=== PATIENT | female | born 1985 | race Caucasian/White ===

== ENCOUNTER 2019-06-08 08:02 | Emergency (ER) | payer OTHER, SELFPAY ==
[2019-06-08 08:40] VITALS: BP 120/72; PULSE 79; RESP 20; TEMP 36.7; O2SAT 99
--- NOTE | 2019-06-08 09:59 | ED.HA ---
HPI - Headache General Chief Complaint: Headache Stated Complaint: migraine Source: patient History of Present Illness HPI Narrative: This is a 34-year-old female who presents with some headache throbbing right-sided headache with ear ache with a pressure-like sensation over the right frontal forehead with no nasal discharge has some chronic migraines, this feels a little bit different than her regular migraine with dullness pressure-like sensation with no chest pain no shortness of breath no blurry vision no fever or chills no neck stiffness. MD elicited complaint: headache and migraine Onset (ago): hour(s) Onset description: gradually Location: left, frontal and facial Severity: moderate Pain scale (0-10): 7 Quality & Timing: throbbing, pulsatile and dull Context: occurred at rest Associated symptoms: none Treatments prior to arrival: acetaminophen Related Data Allergies Allergy/AdvReac Type Severity Reaction Status Date / Time morphine Allergy Unknown Verified 09/21/14 09:27 Review of Systems Review of Systems: All systems reviewed & are unremarkable except as noted in HPI and below PMFSH Past Medical History Medical History Anxiety Depression Migraines Family History Family History Father Hypertension Other Family history of heart disease in male family member before age 55 Social History Social History Smoking status: Never smoker Exam Const: General: no acute distress and alert Orientation/consciousness: patient oriented x3 HENMT: Head: normal to inspection Eyes: Pupils: Equal, round and reactive pupils present Other: Right frontal sinus pressure with palpation Neck: Neck: normal visual inspection Chest: Chest palpation & inspection: normal inspection of the chest Resp: Effort & Inspection: normal respiratory effort Cardio: Rate: regular rate Rhythm: regular rhythm GI: GI Palp: Yes Soft to palpation : General: Yes no CVA tenderness Course Course Emergency Course: patient had 60 mg Toradol IM and her headache has improved Critical Care Time Critical Care Time Critical Care Time: No Discharge Plan Discharge Clinical Impression: Migraines Qualifiers: Migraine type: without aura Status migrainosus presence: without status migrainosus Intractability: not intractable Qualified Code(s): G43.009 - Migraine without aura, not intractable, without status migrainosus Headache Qualifiers: Headache type: unspecified Headache chronicity pattern: acute headache Intractability: not intractable Qualified Code(s): R51 - Headache Sinusitis Qualifiers: Sinusitis location: frontal Chronicity: acute Recurrence: non-recurrent Qualified Code(s): J01.10 - Acute frontal sinusitis, unspecified Patient Disposition: Home, Self-Care Condition: Stable Instructions: Antibiotic Form, Sinusitis (ED), Acute Headache (ED) Additional Instructions: clear 10 [id number] daily x1 week, take medicines as prescribed and follow-up with primary care physician if symptoms persist or worsen. Prescriptions: New azithromycin [Zithromax Z-Greg] 250 mg tablet 250 mg PO DAILY 5 Days Qty: 5 RF: 0 tramadol [Ultram] 50 mg tablet 50 mg PO Q6H PRN (Reason: pain) Qty: 20 RF: 0 fluticasone propionate [Flonase Allergy Relief] 50 mcg/actuation spray,suspension 1 spray NASAL BID Qty: 15.8 RF: 0 Follow-up/Referrals: Adria Clark MD [Primary Care Provider] - Time of Disposition: 10:14
[2019-06-08 10:26] VITALS: BP 109/62; PULSE 60; RESP 18; TEMP 36.2; O2SAT 100
== END 2019-06-08 10:35 | disposition home or self-care (01) ==
PROVIDERS: Emergency Provider Emergency Medicine; PCP Internal Medicine
DX: G43.009 Migraine without aura, not intractable, without status migrainosus (principal); J01.10 Acute frontal sinusitis, unspecified
CPT/HCPCS: 99283

== ENCOUNTER 2020-04-13 11:31 | Outpatient (CLI) | payer OTHER, SELFPAY ==
--- NOTE | ~2020-04-13 | XR_ITS ---
EXAMINATION: XR chest 2V DATE: 04/13/2020 11:53 INDICATION: Left pleuritic chest pain, COVID 19 positive TECHNIQUE: PA and lateral views of the chest are obtained. COMPARISON: 01/30/2012 FINDINGS: The lungs are free of acute opacities. There is no pleural effusion or pneumothorax. The ca rdiomediastinal silhouette is normal. The visualized bones and soft tissues are unremarkable. IMPRESSION: 1. No acute cardiopulmonary abnormality. Reviewed, dictated and finalized at location A. GER PUBLIC
--- NOTE | ~2020-04-13 | CT_ITS ---
EXAMINATION: CTA chest PE protocol DATE: 04/13/2020 16:59 INDICATION: COVID positive. Shortness of breath. Elevated d-dimer. Diffuse left-sided chest pain. TECHNIQUE: Computed tomography (CT) pulmonary angiogram of the chest was performed with 100 mL Omnipa que-350 intravenous contrast. Additional 3D reconstructions utilizing coronal maximum intensity proje ction (MIP) were performed. Automated exposure control and iterative reconstruction technique were em ployed. The dose-length product was 424.67 mGy-cm. COMPARISON: None FINDINGS: Good contrast opacification of the pulmonary arteries. There is mild streak artifact from dense contr ast in the superior vena cava and right atrium. Mild scattered respiratory motion artifact which does not significantly limit evaluation. There are pulmonary arterial filling defects consistent with emb karmen within a couple branches of the posterior basilar segmental pulmonary artery of the right lower l obe. No other definitive pulmonary emboli. Mild dependent atelectasis in the bilateral lower lobes. N o evident pneumonia, pulmonary edema, pleural effusion or pneumothorax. Heart size is normal. No evid ent right heart strain. No pericardial effusion. Thoracic aorta is normal in caliber with no dissecti on. Multinodular goiter with multiple likely benign small hypodense nodules the largest measuring 7 m m. No pathologically enlarged thoracic lymphadenopathy. Calcifications along the right adrenal gland consistent with prior insult such as infection or hemorrhage. Couple bladder is not visualized and li reuben surgically absent. Minimal thoracic spondylosis. IMPRESSION: 1. Pulmonary emboli with low clot burden within a couple subsegmental pulmonary arterial branches at the posterior basilar segment of the right lower lobe. Reviewed, dictated and finalized at location A. AL TECHNICIAN
[2020-04-13 12:02] LABS: Basophils Absolute Auto 0.01 K/mm3 (0.00-0.10); Basophils Percent Auto 0.2 % (0.0-1.0); Eosinophils Absolute Auto 0.05 K/mm3 (0.02-0.50); Eosinophils Percent Auto 0.8 % (1.0-6.0); Hematocrit 43.6 % (35.0-49.0); Hemoglobin 14.3 g/dL (12.0-15.0); Immature Granulocyte Absolute 0.02 K/mm3 (0.00-0.00); Immature Granulocyte Percent A 0.3 % (0.0-0.0); Lymphocytes Absolute Auto 1.88 K/mm3 (1.10-4.50); Lymphocytes Percent Auto 31.3 % (18.0-42.0); Mean Corpuscular HGB Conc 32.8 g/dL (32.0-36.0); Mean Corpuscular Hemoglobin 28.8 pg (27.0-31.0); Mean Corpuscular Volume 87.7 fL (78.0-102.0); Mean Platelet Volume 10.1 fl (9.2-11.8); Monocytes Absolute Auto 0.36 K/mm3 (0.10-0.90); Neutrophils Absolute Auto 3.7 K/mm3 (1.7-7.2); Neutrophils Percent Auto 61.4 % (50.0-70.0); Platelet Count Result 260 K/mm3 (150-420); Red Blood Count 4.97 M/mm3 (4.20-5.40); Red Cell Distribution Width 11.9 % (11.6-14.4)
[2020-04-13 12:23] LABS: Alanine Aminotransferase 15 U/L (14-59); Albumin Level 4.3 g/dL (3.4-5.0); Alkaline Phosphatase 51 U/L (46-116); Anion Gap 8 mmol/L (8-16); Aspartate Amino Transferase < 10 U/L (15-37); Bilirubin,Total 0.7 mg/dL (0.00-1.00); Blood Urea Nitrogen 9 mg/dL (7-18); CRP < 0.5 mg/dL (0.0-0.9); Calcium 9.2 mg/dL (8.5-10.1); Carbon Dioxide 28 mmol/L (21-32); Chloride 103 mmol/L (98-108); Estimated Glomerular Filt Rate > 60; Glucose 94 mg/dL (70-99); Osmolality Calculated 286 mOsm/kg (285-295); Potassium 4.1 mmol/L (3.5-5.1); Sodium 139 mmol/L (136-145); Total Protein 7.9 g/dL (6.4-8.2)
== END 2020-04-13 11:32 | disposition home or self-care (01) ==
PROVIDERS: PCP Internal Medicine; Visit Provider Internal Medicine
DX: U07.1 COVID-19 (principal); R07.81 Pleurodynia
CPT/HCPCS: 36415; 71046; 71275; 80053; 85025; 85380; 86140; Q9965; Q9967

== ENCOUNTER 2020-04-14 11:03 | Emergency (ER) | payer OTHER, SELFPAY ==
--- NOTE | 2020-04-14 11:13 | ED.SOB ---
HPI - SOB/Dyspnea General Chief Complaint: Recheck/Abnormal Lab/Rx Stated Complaint: Covid + /Unable to breath/3 blood clots in lung Time Seen by Provider: 04/14/20 11:29 Source: patient Mode of arrival: ambulatory Limitations: no limitations History of Present Illness HPI Narrative: 34-year-old woman comes in today complaining of pleuritic chest pain on the left and some shortness of breath last few days. Her physician did an outpatient workup finding a CTA angiogram positive for PEs, Mostly on the right. She has had no fever, vomiting, hemoptysis, syncope. She was diagnosed with COVID pneumonia several days ago. MD elicited complaint: shortness of breath and pain with inspiration Onset (ago): day(s) (3) Context: recent illness Timing: intermittent Severity: moderate Exacerbating factors: movement, coughing and inspiration Relieving factors: rest Known history of: asthma Associated symptoms: pain with inspiration and cough Treatment prior to arrival: none Related Data Home oxygen amount: none Home Medications Medication Instructions Recorded Confirmed albuterol sulfate 2 puff INHALATION Q4-8H PRN 04/14/20 04/14/20 cholecalciferol (vitamin D3) 25 mcg PO DAILY 04/14/20 04/14/20 duloxetine 40 mg PO DAILY 04/14/20 04/14/20 lorazepam 0.5 mg PO HS PRN 04/14/20 04/14/20 sertraline 37.5 mg PO DAILY 04/14/20 04/14/20 Allergies Allergy/AdvReac Type Severity Reaction Status Date / Time morphine Allergy Unknown Verified 09/21/14 09:27 Review of Systems Constitutional: Constitutional: Denies chills and Denies fever(s) Eyes: Eyes: Denies change in vision and Denies photophobia ENT: Denies dysphagia, Denies nasal congestion and Denies sore throat Cardiovascular: Cardiovascular: Reports chest pain and Denies radiating jaw, neck or arm pain Respiratory: Respiratory: Reports cough, Reports dyspnea and Denies wheezing Gastrointestinal: Gastrointestinal: Denies abdominal pain, Denies diarrhea, Denies nausea and Denies vomiting Genitourinary: Genitourinary: Denies nocturia and Denies dysuria Musculoskeletal: Musculoskeletal: Denies arthralgias and Denies joint swelling Integumentary/Breasts: Skin/Breast: Denies pruritus, Denies erythema and Denies rash Neurologic: Denies vertigo, Denies dizziness and Denies syncope Hematologic/Lymphatic: Hematologic/Lymphatic: Denies easy bleeding and Denies easy bruising Allergic/Immunologic: Allergic/Immunologic: Denies lip swelling and Denies throat swelling [facility] Past Medical History Medical History (Updated 04/14/20 @ 13:12 by Marc Su MD) Anxiety Depression Migraines Surgical History Surgical History History of S/P tubal ligation Family History Family History Father Hypertension Other Family history of heart disease in male family member before age 55 Social History Social History Smoking status: Never smoker Exam Const: General: healthy appearing, no acute distress and alert Orientation/consciousness: patient oriented x3 Limitations: no limitations HENMT: Head: normal to inspection Ears: external ears normal, TM's normal bilaterally and EAC's normal General nose exam: Normal nares present Face and sinus: normal facial exam Mouth: Yes moist mucous membranes Throat: posterior oropharynx normal Eyes: Conjunctivae: conjunctivae normal Pupils: Equal, round and reactive pupils present EOM: EOMs intact bilaterally Chest: Chest palpation & inspection: tenderness ( mild tenderness palpation on the left anterior costal margin) Resp: Effort & Inspection: normal respiratory effort and not labored Auscultation: clear to auscultation bilaterally, no rales, no rhonchi and no wheezes Cardio: Rate: regular rate Rhythm: regular rhythm Heart sounds: no murmurs GI: GI
[2020-04-14 11:15] VITALS: BP 110/81; PULSE 89; RESP 20; TEMP 36.6; O2SAT 100
[2020-04-14 12:21] LABS: Partial Thromboplastin Time 25.9 SEC (22.3-31.6); Prothrombin Time 10.7 Seconds (9.64-11.0)
[2020-04-14 12:54] LABS: Add Urine Microscopic? NO; Appearance Urine Clear (Clear); Bilirubin Urine Negative (Negative); Blood Urine Negative (Negative); Color Urine Yellow (Yellow); Glucose Urine UA Negative (Negative); Ketones Urine Negative (Negative); Leukocyte Esterase Ur Negative (Negative); Nitrate Urine Negative (Negative); Protein Urine Negative (Negative); Specific Grav Ur >= 1.030 (1.010-1.020); pH Urine 6.5 (5.0-8.0)
[2020-04-14 12:56] LABS: Pregnancy On Board Control Positive; Urine Pregnancy Test Negative
[2020-04-14 13:40] VITALS: BP 129/92; PULSE 79; RESP 14; O2SAT 100
--- NOTE | 2020-04-14 13:47 | PC.NURSE ---
PCP OFFICE MADE AWARE OF PATIENTS INABILITY TO PAY FOR PRESCRIBED MEDICATIONS AND PATIENTS DISINTEREST IN DUISCUSSING ALTERNATIVES.
[2020-04-16 21:12] LABS: Antithrombin III Activity 116 % normal (80-135)
[2020-04-17 22:00] LABS: Anti Cardio Antibody IgM <12 MPL (<=12); Anti Cardiolipin Antibody IgA <11 APL (<=11); Anti Cardiolipin Antibody IgG <14 GPL (<=14)
== END 2020-04-14 13:43 | disposition home or self-care (01) ==
PROVIDERS: Emergency Provider Emergency Medicine; PCP Internal Medicine
DX: I26.99 Other pulmonary embolism without acute cor pulmonale (principal)
CPT/HCPCS: 36415; 81003; 81025; 81240; 81241; 85300; 85303; 85306; 85610; 85730; 86147; 99283

== ENCOUNTER 2020-06-28 14:10 | Outpatient (CLI) | payer OTHER, SELFPAY ==
--- NOTE | ~2020-06-28 | XR_ITS ---
EXAMINATION: XR chest 2V 06/28/2020 14:41 INDICATION: Chest pain. History of blood clots. PROCEDURE: 2 view chest COMPARISON: 04/13/2020 FINDINGS: The lungs are clear. The cardiomediastinal silhouette is within normal limits. There are no pleural effusions. There is no pneumothorax suspected. IMPRESSION: 1: NO ACUTE CARDIOPULMONARY DISEASE. Reviewed, dictated and finalized at location B.
[2020-06-28 14:24] LABS: Basophils Absolute Auto 0.05 K/mm3 (0.00-0.10); Basophils Percent Auto 0.6 % (0.0-1.0); Eosinophils Absolute Auto 0.09 K/mm3 (0.02-0.50); Eosinophils Percent Auto 1.1 % (1.0-6.0); Hemoglobin 14.2 g/dL (12.0-15.0); Immature Granulocyte Absolute 0.02 K/mm3 (0.00-0.00); Immature Granulocyte Percent A 0.2 % (0.0-0.0); Lymphocytes Absolute Auto 1.87 K/mm3 (1.10-4.50); Lymphocytes Percent Auto 23.1 % (18.0-42.0); Mean Corpuscular Hemoglobin 28.9 pg (27.0-31.0); Mean Corpuscular Volume 87.4 fL (78.0-102.0); Mean Platelet Volume 9.9 fl (9.2-11.8); Monocytes Absolute Auto 0.42 K/mm3 (0.10-0.90); Monocytes Percent Auto 5.2 % (2.0-11.0); Neutrophils Absolute Auto 5.7 K/mm3 (1.7-7.2); Neutrophils Percent Auto 69.8 % (50.0-70.0); Platelet Count Result 231 K/mm3 (150-420); Red Blood Count 4.92 M/mm3 (4.20-5.40); White Blood Count 8.1 K/mm3 (4.8-10.8)
[2020-06-28 14:55] LABS: Alanine Aminotransferase 16 U/L (14-59); Albumin Level 4.1 g/dL (3.4-5.0); Alkaline Phosphatase 49 U/L (46-116); Anion Gap 7 mmol/L (8-16); Aspartate Amino Transferase 10 U/L (15-37); Bilirubin,Total 0.6 mg/dL (0.00-1.00); Blood Urea Nitrogen 10 mg/dL (7-18); CRP < 0.5 mg/dL (0.0-0.9); Calcium 8.8 mg/dL (8.5-10.1); Carbon Dioxide 29 mmol/L (21-32); Chloride 103 mmol/L (98-108); Creatine Kinase 43 U/L (26-192); Estimated Glomerular Filt Rate > 60; Glucose 89 mg/dL (70-99); Osmolality Calculated 286 mOsm/kg (285-295); Sodium 139 mmol/L (136-145); Total Protein 7.2 g/dL (6.4-8.2)
[2020-06-28 15:18] LABS: Creatine Kinase MB < 0.50 ng/mL (0.00-5.00)
== END 2020-06-28 14:11 | disposition home or self-care (01) ==
PROVIDERS: PCP Internal Medicine; Visit Provider Nurse Practitioner Family
DX: R07.9 Chest pain, unspecified (principal)
CPT/HCPCS: 36415; 71046; 80053; 82550; 82553; 84484; 85025; 86140

== ENCOUNTER 2021-02-14 09:59 | Outpatient (CLI) | payer MEDICAID, SELFPAY ==
--- NOTE | ~2021-02-14 | XR_ITS ---
XR hand LT min 3V DATE: 02/14/2021 10:30 INDICATION: Smash injury in door near first metacarpal TECHNIQUE: 3 views COMPARISON: None FINDINGS: No fracture or dislocation, periosteal reaction or bone destruction, erosive change or fernando drocalcinosis. No radiopaque soft tissue foreign body or subcutaneous emphysema. IMPRESSION: Negative Reviewed, dictated and finalized at location A. PRODUCTION FIELD SUPERVISOR IMPRESSION: Negative
--- NOTE | ~2021-02-14 | XR_ITS ---
XR wrist LT min 3V DATE: 02/14/2021 10:30 INDICATION: Left wrist and hand injury, smashed in door TECHNIQUE: 4 views COMPARISON: None FINDINGS: No fracture or dislocation, periosteal reaction or bone destruction, joint space narrowing, erosive change or chondrocalcinosis. IMPRESSION: Negative Reviewed, dictated and finalized at location A. E PATCH MOLDER IMPRESSION: Negative
== END 2021-02-14 10:00 | disposition home or self-care (01) ==
PROVIDERS: PCP Internal Medicine; Visit Provider Internal Medicine
DX: S69.92XA Unspecified injury of left wrist, hand and finger(s), initial encounter (principal)
CPT/HCPCS: 73110; 73130

== ENCOUNTER 2022-02-13 15:07 | Outpatient (CLI) | payer OTHER, SELFPAY ==
--- NOTE | ~2022-02-13 | XR_ITS ---
EXAMINATION: XR thoracolumbar INDICATION: Lower thoracic spine pain TECHNIQUE: Two views of the thoracolumbar spine are obtained. COMPARISON: 06/12/2016 FINDINGS: No fracture, dislocation, or subluxation. The vertebral body heights, alignment, and interv ertebral disc spaces are normal. The paravertebral soft tissues are unremarkable. IMPRESSION: 1. Unremarkable thoracolumbar spine radiographs. Reviewed, dictated and finalized at location F. IFIED REHABILITATION COUNSELOR
== END 2022-02-13 15:08 | disposition home or self-care (01) ==
LOC: CHSIMG 15:09
PROVIDERS: PCP Internal Medicine; Visit Provider Internal Medicine
DX: M54.6 Pain in thoracic spine (principal)
CPT/HCPCS: 72080

== ENCOUNTER 2022-04-25 12:54 | Emergency (ER) | payer OTHER, SELFPAY ==
--- NOTE | ~2022-04-25 | CT_ITS ---
Non-contrast Head CT History: Headache Technique: Axial non-contrast imaging of the brain was performed. Dose reduction technique was used on this scan by utilizing automated exposure control and iterative reconstruction technique. The dose -length product (DLP) was 605.33 mGy-cm. Findings: There is no evidence of intracranial hemorrhage, mass lesion, or acute infarct. Brain par enchyma appears normal. The ventricles and subarachnoid spaces are normal in size. The calvarium ap pears normal. The visualized paranasal sinuses and mastoid air cells are clear. Impression: No significant abnormality seen. Reviewed, dictated and finalized at location . PRECIPITATOR OPERATOR Impression: No significant abnormality seen.
[2022-04-25 12:55] VITALS: BP 124/86; PULSE 77; RESP 16; TEMP 36.4; O2SAT 99
--- NOTE | 2022-04-25 13:08 | ED.GENADULT ---
HPI - General Adult General Chief complaint: Headache Stated complaint: Migrane Time Seen by Provider: 04/25/22 12:57 History of Present Illness HPI narrative: Marley is a 36F with a PMH of PE after covid, mood disorder and migraines that presented to the ED with a headache. It started 5 days ago after she donated blood. It is a bilateral pounding headache with nausea and photophobia. She went to her PCP office and had some injections which helped but then it came back more severely. It is worse with leaning forward as well. No vision or hearing changes reported. Related Data Home Medications Medication Instructions Recorded Confirmed cholecalciferol (vitamin D3) 25 25 mcg PO DAILY 04/14/20 04/25/22 mcg (1,000 unit) tablet lorazepam 0.5 mg tablet 0.5 mg PO HS PRN Sleep 04/14/20 04/25/22 rizatriptan 10 mg disintegrating 10 mg PO PRN PRN Headache 04/25/22 04/25/22 tablet Allergies Allergy/AdvReac Type Severity Reaction Status Date / Time morphine Allergy Unknown Hives Verified 04/25/22 13:06 Review of Systems Review of Systems: All systems reviewed & are unremarkable except as noted in HPI and below PMFSH Past Medical History Medical History Anxiety Depression Migraines Surgical History Surgical History History of S/P tubal ligation Family History Family History Father Hypertension Other Family history of heart disease in male family member before age 55 Social History Social History Smoking status: Never smoker Exam Const: General: healthy appearing Nutritional Appearance: well nourished Orientation/consciousness: patient oriented x3 HENMT: Head: normal to inspection Ears: external ears normal Face/Nose/Sinus: Normal external nose present Eyes: Conjunctivae: conjunctivae normal Pupils: Equal, round and reactive pupils present EOM: EOMs intact bilaterally Neck: Neck: normal visual inspection Chest: Chest palpation & inspection: normal inspection of the chest Resp: Effort & Inspection: normal respiratory effort Auscultation: clear to auscultation bilaterally Cardio: Rate: regular rate Rhythm: regular rhythm Skin: General skin exam: normal color Rashes: no rashes Neuro: General: patient oriented x3 and moves all extremities Cranial nerves: Yes Nystagmus not present Speech: normal speech Other: CNII-XII intact as tested, normal finger to nose, 5/5 symmetrical strength throughout the upper extremities Extrem: General: normal to inspection Psych: Mental Status: mental status grossly normal Course Course Emergency Course: Ordered benadryl, compazine and fluids as well as CT given severity and duration of headache that was not improving with time and standard treatment Non-contrast Head CT History: Headache Technique:? Axial non-contrast imaging of the brain was performed. Dose reduction technique was used on this scan by utilizing automated exposure control and iterative reconstruction technique. The dose-length product (DLP) was 605.33 mGy-cm. Findings:? There is no evidence of intracranial hemorrhage, mass lesion, or acute infarct.? Brain parenchyma appears normal.? The ventricles and subarachnoid spaces are normal in size.? The calvarium appears normal.? The visualized paranasal sinuses and mastoid air cells are clear. Impression: No significant abnormality seen. She had great pain relief with the meds Discharge Plan Discharge Clinical Impression: Headache Patient Disposition: Home, Self-Care Condition: Stable Instructions: Acute Headache (ED) Prescriptions: No Action lorazepam 0.5 mg tablet 0.5 mg PO HS PRN (Reason: Sleep) cholecalciferol (vitamin D3) 25 mcg (1,000 unit) Tablet 25 mcg PO DAILY
[2022-04-25] MEDS: diphenhydrAMINE HCl INJ 50 MG/ML VIAL IV PUSH (13:41)
[2022-04-25] MEDS: SODIUM CHLORIDE 0.9% IV 1,000 ML 999 ML IV CONT (13:41)
[2022-04-25] MEDS: PROCHLORPERAZINE EDISYLATE 10 MG/2 ML VIAL IV PUSH (13:42)
[2022-04-25 14:06] LABS: Basophils Absolute Auto 0.03 K/mm3 (0.00-0.10); Basophils Percent Auto 0.3 % (0.0-1.0); Eosinophils Absolute Auto 0.02 K/mm3 (0.02-0.50); Eosinophils Percent Auto 0.2 % (1.0-6.0); Hematocrit 34.6 % (35.0-49.0); Hemoglobin 11.7 g/dL (12.0-15.0); Immature Granulocyte Absolute 0.03 K/mm3 (0.00-0.00); Immature Granulocyte Percent A 0.3 % (0.0-0.0); Immature Platelet Fraction Pct 4.3 % (1.0-7.0); Lymphocytes Absolute Auto 2.23 K/mm3 (1.10-4.50); Lymphocytes Percent Auto 22.4 % (18.0-42.0); Mean Corpuscular HGB Conc 33.8 g/dL (32.0-36.0); Mean Corpuscular Hemoglobin 28.9 pg (27.0-31.0); Mean Corpuscular Volume 85.4 fL (78.0-102.0); Mean Platelet Volume 11.1 fl (9.2-11.8); Monocytes Absolute Auto 0.68 K/mm3 (0.10-0.90); Monocytes Percent Auto 6.8 % (2.0-11.0); Platelet Count Result 93 K/mm3 (150-420); Red Blood Count 4.05 M/mm3 (4.20-5.40); Red Cell Distribution Width 12.1 % (11.6-14.4)
[2022-04-25 14:13] LABS: Prothrombin Time 11.3 Seconds (9.50-12.10)
[2022-04-25 14:14] LABS: Alanine Aminotransferase 17 U/L (14-59); Albumin Level 3.6 g/dL (3.4-5.0); Alkaline Phosphatase 30 U/L (46-116); Anion Gap 10 mmol/L (8-16); Aspartate Amino Transferase 15 U/L (15-37); Bilirubin,Total 0.3 mg/dL (0.00-1.00); Blood Urea Nitrogen 15 mg/dL (7-18); Calcium 8.8 mg/dL (8.5-10.1); Carbon Dioxide 27 mmol/L (21-32); Chloride 106 mmol/L (98-108); Estimated CRCL calculation 86 ml/min; Estimated Glomerular Filt Rate > 60; Glucose 96 mg/dL (70-99); Osmolality Calculated 296 mOsm/kg (285-295); Potassium 3.4 mmol/L (3.5-5.1); Sodium 143 mmol/L (136-145); Total Protein 6.3 g/dL (6.4-8.2)
--- NOTE | 2022-04-25 14:18 | PC.NURSE ---
PT IS RESTING ON STRETCHER WITH IVF INFUSING ORDERED WITHOUT DIFFICULTY. PT REPORTS SHE IS FEELING BETTER. LIGHTS ARE OFF. PT DENIES ANY NEEDS OR COMPLAINTS. WILL CONTINUE TO MONITOR.
[2022-04-25 14:34] LABS: Influenza A QL RT-PCR Negative (Negative); Influenza B QL RT-PCR Negative (Negative); SARS-CoV-2 RNA PCR Negative (Negative)
[2022-04-25 14:36] LABS: RSV RNA, RT-PCR Negative (Negative)
[2022-04-25 15:20] VITALS: BP 122/79; PULSE 88; RESP 16; TEMP 36.7; O2SAT 98
== END 2022-04-25 15:20 | disposition home or self-care (01) ==
PROVIDERS: Emergency Provider Family Medicine; PCP Internal Medicine
DX: R51.9 Headache, unspecified (principal); Z20.822 Contact with and (suspected) exposure to COVID-19
CPT/HCPCS: 36415; 70450; 80053; 85025; 85055; 85610; 87637; 96361; 96374; 96375; 99284; J0780; J1200; J7030

== ENCOUNTER 2022-12-18 14:39 | Outpatient (CLI) | payer OTHER, SELFPAY ==
--- NOTE | ~2022-12-18 | XR_ITS ---
EXAMINATION: XR_CERV2-3V_CR DATE: 12/18/2022 15:00 INDICATION: Neck pain. TECHNIQUE: 3 views of cervical spine were obtained. COMPARISON: None. FINDINGS: There is 8 degrees levocurvature of cervical spine. Vertebral body heights and intervertebr al disc heights are normal. The facet joints are unremarkable. No central canal stenosis or preverteb ral soft tissue swelling. IMPRESSION: 1. No etiology for the patient's symptoms. Reviewed, dictated and finalized at location E.
== END 2022-12-18 14:40 | disposition home or self-care (01) ==
LOC: CHSIMG 14:40
PROVIDERS: PCP Internal Medicine; Visit Provider Internal Medicine
DX: M54.2 Cervicalgia (principal)
CPT/HCPCS: 72040

== ENCOUNTER 2022-12-28 08:34 | Outpatient (RCR) | payer OTHER, SELFPAY ==
--- NOTE | 2022-12-28 08:28 | OPREHPOC ---
Outpatient Therapy Plan of Care This is a Multidisciplinary Plan of Care that may contain components documented by all disciplines (PT, OT, and ST.) PT Problem 1 PT Problem #1 Knowledge Deficit PT Goal 1 Goal 1. independent and compliant with HEP to improve tolerance for continued skilled PT and exercises Target Visit 4 PT Problem 2 PT Problem #2 Pain PT Goal 1 Goal 1. NDI to display 0% funcitonal deficits 2. pain free sleeping, sitting, and functional activities to return to prior level quality of life. Target Visit 9 PT Problem 3 PT Problem #3 Impaired Range of Motion PT Goal 1 Goal 1. 45 degrees arom cervical flexion or better 2. 50 degrees or better arom cervical extension 3. 30 degrees or better arom bilateral cervical sidebending 4. 70 degrees or better arom bilateral cervical rotation Target Visit 12 PT Problem 4 PT Problem #4 Impaired Strength PT Goal 1 Goal 1. R hand fuel efficient automobile designer strength to improve to within 5lbs of the L hand. Target Visit 12 PT Problem 5 PT Problem #5 Impaired Functional Mobil PT Goal 1 Goal 1. patient to sleep through the night without neck pain 2. patient to display improved shoulder/scapular posture 3. patient to return to prior level workout/ lifting to improve quality of life. Target Visit 12
--- NOTE | 2022-12-28 08:29 | PTOPEVAL1 ---
Assessment and note entered by JT File, PT Evaluation Information Assessment Status Evaluation Diagnosis cervicalgia Onset 11/27/22 Subjective Information patient reports she slept wrong on her neck. she reports this was about a month ago. no increased activity or change in actvity prior to that. she reports now, she has worsening pain with sitting on her bed, and sleeping. she reports she has NTB in the R elbow. she reports this has been going on for about 2 weeks. xrays were performed last week . results are unremarkable for her symptoms. Reported Pain Level Pain Score 4: Self Report Assessment PT Clinical Summary mrs. boyle presents to skilled PT for evaluation and treatment of neck pain that radiates into the R elbow. she presents with signs and symptoms of cervical radiculopathy today noting positive spurlings test, and pain in the neck down to the R elbow with cervical movements. she would benefit from continued skilled PT to address her cervical rom deficits, pain, and deficits in functional activity performance to return to her prior level functional mobility and quality of life. Plan of Care Interventions Electrical Stimulation,Hot Pack/Cold Pack,Manual Therapy,Mechanical Traction,Neuro Re-education, Patient/Caregiver Educati,Therapeutic Activities, Therapeutic Exercise PT Services Indicated Yes Treatment Frequency and 3x weekly for 9 visits Duration These treatments will address the objective and functional deficits as defined above. The patient will be advanced safely and appropriately in order for the patient to progress towards his/her prior level of function. Additional exercises will be introduced and as well as a comprehensive home exercise program upon discharge, if needed, ?to ensure carryover of functional gains achieved in the clinic. This treatment plan has been reviewed and agreement upon by the patient.
--- NOTE | 2023-01-12 08:08 | OPREHPOC ---
Outpatient Therapy Plan of Care This is a Multidisciplinary Plan of Care that may contain components documented by all disciplines (PT, OT, and ST.) PT Problem 1 PT Problem #1 Knowledge Deficit PT Goal 1 Goal 1. independent and compliant with HEP to improve tolerance for continued skilled PT and exercises Target Visit 4 Progress Met PT Problem 2 PT Problem #2 Pain PT Goal 1 Goal 1. NDI to display 0% funcitonal deficits 2. pain free sleeping, sitting, and functional activities to return to prior level quality of life. Target Visit 9 Progress Met PT Problem 3 PT Problem #3 Impaired Range of Motion PT Goal 1 Goal 1. 45 degrees arom cervical flexion or better 2. 50 degrees or better arom cervical extension 3. 30 degrees or better arom bilateral cervical sidebending 4. 70 degrees or better arom bilateral cervical rotation Target Visit 12 Progress Met PT Problem 4 PT Problem #4 Impaired Strength PT Goal 1 Goal 1. R hand retail commission sales associate strength to improve to within 5lbs of the L hand. Target Visit 12 Progress Met PT Problem 5 PT Problem #5 Impaired Functional Mobil PT Goal 1 Goal 1. patient to sleep through the night without neck pain 2. patient to display improved shoulder/scapular posture 3. patient to return to prior level workout/ lifting to improve quality of life. Target Visit 12 Progress Met
--- NOTE | 2023-01-12 08:09 | PTOPDC ---
Assessment and note entered by Sarah Barbosa DPT Evaluation Information Assessment Status Re-evaluation Diagnosis cervicalgia Onset 11/27/22 Subjective Information She reports she has been able to return to all daily activities at [facility]. She reports no sleep disturbance due to neck pain. No numbness or tingling down the UE. Reported Pain Level Pain Score 0: Self Report Assessment PT Clinical Summary Patient was seen for 7 visits of skilled PT with all goals met during POC. She has been able to return to all daily activities with no increase in neck pain. She is independent with HEP and is appropriate for DC at this time. Plan of Care PT Services Indicated No
== END 2023-01-12 08:39 | disposition home or self-care (01) ==
LOC: CHSPT 08:34
PROVIDERS: PCP Internal Medicine; Visit Provider Internal Medicine
DX: M54.2 Cervicalgia (principal)
CPT/HCPCS: 97014; 97110; 97140; 97161; G0283

== ENCOUNTER 2023-05-05 06:40 | Outpatient (CLI) | payer OTHER, SELFPAY ==
--- NOTE | ~2023-05-05 | MR_ITS ---
EXAMINATION: MR brain/brain stem wo con DATE: 05/05/2023 08:08 INDICATION: Worsening headache. TECHNIQUE: Magnetic resonance imaging (MRI) of the brain and brainstem was performed without intraven ous contrast. COMPARISON: Head CT 04/25/22 FINDINGS: The cerebellar tonsils extend 6 mm inferior to foramen magnum, consistent with Chiari I mal formation. There is no intracranial hemorrhage, acute infarction, or abnormal intracranial mass lesio n. The ventricles are normal in size. The mastoid air cells are normal. There is mucosal thickening i n the maxillary sinuses. The orbits are normal. IMPRESSION: 1. Chiari I malformation. Reviewed, dictated and finalized at location E. E COACH IMPRESSION: 1. Chiari I malformation.
== END 2023-05-05 06:41 | disposition home or self-care (01) ==
LOC: CHSIMG 06:41
PROVIDERS: PCP Internal Medicine; Visit Provider Internal Medicine
DX: R51.9 Headache, unspecified (principal); G93.5 Compression of brain
CPT/HCPCS: 70551

== ENCOUNTER 2023-05-15 11:56 | Outpatient (CLI) | payer OTHER, SELFPAY ==
[2023-05-15 12:44] LABS: SARS-CoV-2 RNA PCR Negative (Negative)
[2023-05-15 12:45] LABS: Influenza A QL RT-PCR Negative (Negative); Influenza B QL RT-PCR Positive (Negative); RSV RNA, RT-PCR Negative (Negative)
== END 2023-05-15 11:57 | disposition home or self-care (01) ==
LOC: CHSLAB 11:58
PROVIDERS: PCP Internal Medicine; Visit Provider Internal Medicine
DX: R05.9 Cough, unspecified (principal); R50.9 Fever, unspecified
CPT/HCPCS: 87637

== ENCOUNTER 2024-03-06 07:50 | Outpatient (RCR) | payer OTHER, SELFPAY ==
--- NOTE | 2024-03-06 08:01 | OPREHPOC ---
Outpatient Therapy Plan of Care This is a Multidisciplinary Plan of Care that may contain components documented by all disciplines (PT, OT, and ST.) PT Problem 1 PT Problem #1 Knowledge Deficit PT Goal 1 Goal / Goal Update The patient will be independent in a home exercise program. Target Visit 2 PT Problem 2 PT Problem #2 Pain PT Goal 1 Goal / Goal Update The patient will report no greater than 1/10 left knee pain with standing for an 8 hour shift. Target Visit 10 PT Problem 3 PT Problem #3 Impaired Flexibility PT Goal 1 Goal / Goal Update The patient will improve bilateral hamstring flexibility by 10 degrees to decrease stress on the knee. Target Visit 10 PT Problem 4 PT Problem #4 Impaired Functional Mobil PT Goal 1 Goal / Goal Update 1. The patient will demonstrate 5% or less self perceived disability per the LEFS questionnaire. 2. The patient will be able to squat to parallel with 20# for 10 repetitions with good form and no left knee pain. Target Visit 10
--- NOTE | 2024-03-06 08:01 | PTOPEVAL1 ---
Assessment and note entered by Katherin Clark, PT Evaluation Information Assessment Status Evaluation ICD-10 Condition Codes (PT) Pain in left knee M25.562 Onset 02/01/24 Subjective Information Marley Chowdary reports she injured her left knee on 02/01/24 when she was squatting. She had 60 lbs in her hands and she felt a pop on the back of the knee and then her upper leg went left and the lower leg went right as she squatted down. She wore a brace that was self prescribed for a few weeks. She did not the brace helped. She finally went to the doctor last week and was prescribed PT . If PT does not help, she is supposed to get a MRI. She is now only wearing the brace for work because she stands all day. She did have a lot of swelling initially but does not anymore. Pain is around a 3-4/10 at most. She does not standing too long and squatting increases her pain. She has pain on the outer side of the knee and back of the knee. Reported Pain Level Pain Score 0: Self Report Assessment PT Clinical Summary Marley Chowdary presents 5 weeks s/p L knee injury sustained while squatting with 60lbs. 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 She demonstrates tenderness over the left LCL, decreased bilateral hamstring and quadriceps flexibility, decreased left knee and hip strength, altered gait, and decreased functional mobility. She will benefit from skilled PT to address these limitations. Plan of Care Interventions Electrical Stimulation,Hot Pack/Cold Pack,Manual Therapy,Neuro Re-education,Patient/Caregiver Educati,Therapeutic Activities,Therapeutic Exercise PT Services Indicated Yes Treatment Frequency and 2 times a week for 10 visits Duration These treatments will address the objective and functional deficits as defined above. The patient will be advanced safely and appropriately in order for the patient to progress towards his/her prior level of function. Additional exercises will be introduced and as well as a comprehensive home exercise program upon discharge, if needed, ?to ensure carryover of functional gains achieved in the clinic. This treatment plan has been reviewed and agreement upon by the patient.
--- NOTE | 2024-03-27 07:14 | PCPTNOTE ---
Cancelled session today and tomorrow (03/27 and 03/28). Pt reports she is getting over Covid.
--- NOTE | 2024-04-10 08:49 | OPREHPOC ---
Outpatient Therapy Plan of Care This is a Multidisciplinary Plan of Care that may contain components documented by all disciplines (PT, OT, and ST.) PT Problem 1 PT Problem #1 Knowledge Deficit PT Goal 1 Goal / Goal Update The patient will be independent in a home exercise program. Target Visit 2 Progress Met PT Problem 2 PT Problem #2 Pain PT Goal 1 Goal / Goal Update The patient will report no greater than 1/10 left knee pain with standing for an 8 hour shift. Target Visit 10 Progress Met PT Problem 3 PT Problem #3 Impaired Flexibility PT Goal 1 Goal / Goal Update The patient will improve bilateral hamstring flexibility by 10 degrees to decrease stress on the knee. Target Visit 10 Progress Met PT Problem 4 PT Problem #4 Impaired Functional Mobility PT Goal 1 Goal / Goal Update 1. The patient will demonstrate 5% or less self perceived disability per the LEFS questionnaire. 2. The patient will be able to squat to parallel with 20# for 10 repetitions with good form and no left knee pain. Target Visit 10 Progress Met
--- NOTE | 2024-04-10 08:50 | PTOPDC ---
Assessment and note entered by Katherin Clark, PT Evaluation Information Assessment Status Discharge ICD-10 Condition Codes (PT) Pain in left knee M25.562 Onset 02/01/24 Subjective Information Marley reports that her left knee is doing well. She has not had pain in it recently and feels she has no limitations with daily and recreational activities. She is no longer using a brace and is able to complete her full 8 hour shift of standing /walking without difficulty. She plans to return to lifting weights at the gym. Reported Pain Level Pain Score 0: Self Report Pain Score 0: Self Report Assessment PT Clinical Summary Marley Chowdary has completed 10 skilled PT visits for left knee pain following an injury sustained while squatting in February 2024. She is reporting no pain in the knee and has been able to return to previous level of activity. She demonstrates improved left knee AROM to normal ranges, normal gait without antalgia or a knee brace, good squatting mechanics, reciprocal stair negotiation, good knee and hip strength, and improved hamstring flexibility. She has met all goals and will be discharged to an independent [facility]. Plan of Care PT Services Indicated No
== END 2024-04-10 08:58 | disposition home or self-care (01) ==
LOC: CHSPT 07:50
PROVIDERS: Visit Provider Nurse Practitioner Family
DX: M25.562 Pain in left knee (principal)
CPT/HCPCS: 97110; 97140; 97161; 97530; 97750

== ENCOUNTER 2024-07-01 13:52 | Outpatient (CLI) | payer OTHER, SELFPAY ==
[2024-07-01 15:03] LABS: Free T4 Free Thyroxine 0.96 ng/dL (0.76-1.46)
--- OUTSIDE RECORDS SUMMARY | 2024-07-01 15:10 | XMS_ITS | Clinical Summary ---
Author Organization [facility] Address [facility] [place] [address] Care Team Providers Care Scrub Woman Name Role Phone Adria Clark MD Primary Care Provider [phone] Allergies Active Allergy Reactions Criticality Noted Date Comments Morphine GI Upset,Vomiting 07/29/2021 Medications albuterol sulfate HFA (PROAIR HFA) 108 (90 Base) MCG/ACT inhaler Inhale 2 puffs into the lungs every 6 (six) hours as needed for Wheezing. Active Galcanezumab-gn lm (EMGALITY) 120 MG/ML Solution Auto-injector Inject 1 mL every month by subcutaneous route. 4 Active loratadine (CLARITIN) 10 MG tablet Take 1 tablet (10 mg total) by mouth daily. Active lidocaine 4 % patch Place 1 patch onto the skin daily. Remove & Discard patch within 12 hours or as directed by 6 patch 4 Active ibuprofen (MOTRIN) 600 MG tablet Take 1 tablet (600 mg total) by mouth every 6 (six) hours as needed. 20 tablet 4 Active Family History Medical History Relation Comments Heart Disease Father Stroke Father Diabetes Mother Relation Status Comments Father Mother Social History Tobacco Use Types Packs/Day Years Used Date Smoking Tobacco: Never Smokeless Tobacco: Never Alcohol Use Standard Drinks/Week Comments Yes 0 (1 standard drink = 0.6 oz pur e alcohol) occ. AUDIT-C Answer Date Recorded Frequency of Alcohol Consumption Never 09/13/2018 Average Number of Drinks Not on file 019 Frequency of Binge Drinking Not on file 08/31 Comments No Sex and Gender Information Value Date Recorded Sex Assigned at Not on file Legal Sex Female 4:28 PM CDT Gender Identity Not on file Sexual Orientation Not on file Last Filed Vital Signs Vital Sign Reading Time Taken Comments Blood Pressure 109/79 01/20/2024 12:21 AM CDT Pulse 58 01/20/2024 12:21 AM CDT Temperature 36.4 C (97.6 F) 01/20/2024 12:21 AM CDT Respiratory Rate 15 01/20/2024 12:2 1 AM CDT Oxygen Saturation 99% 01/20/2024 12: 21 AM CDT Inhaled Oxygen Concentration - - Weight 80.2 kg (176 lb 12.8 oz) 024 10:23 PM CDT Height 170.2 cm (5' 7 ) 01/19/2024 10:2 3 PM CDT Body Mass Index 27.69 01/19/2024 10:23 PM CDT Plan of Treatment Health Maintenance Due Date Last Done Comments Cervical Cancer Screening Pap Smear (Age 30 to 64) Every 3 Years 1987 Annual Physical 1990 Hepatitis C 2005 Hepatitis B Vaccines (1 of 3 - 19+ 3-dose series) 2006 Cervical Cancer Screening Pap with HPV Testing (Age 30 to 64) Every 5 Years 2017 Cervical Cancer Screening with HPV 2017 DTaP, Tdap and Td Vaccines (2 - Td or Tdap) 12/25/2021 12/26/2011 COVID-19 Vaccine ( season) 2023 04/19/2021, 06/28/2020, 05/28/2020, Additional history exists HPV Vaccines Aged Out No longer eligi ble based on patient's age to complete this topic Meningococcal B Vaccine Aged Out No l onger eligible based on patient's age to complete this topic Meningococcal Vaccine Aged Out No lanie mak eligible based on patient's age to complete this topic Pneumococcal Vaccine: Pediatrics (0 to 5 Years) and At-Risk Patients (6 to 64 Years) Aged Out No longer eligible based on patient's age to complete this topic RSV Immunizations Under 20 Months Aged Out No longer eligible based on patient's age to complete this topic Insurance [employer] Care Teams Scrub Woman Relationship Specialty Start Date End Date Adria Clark MD [address] [place] [id number] PCP - General INTERNAL MEDICINE 09/13/18
--- OUTSIDE RECORDS SUMMARY | 2024-07-01 15:11 | XMS_ITS | Data Portability ---
Author Organization [facility], [address] [place] ([place]) Address [address] [place] [address] Care Team Providers Care Ux Specialist Name Role Phone CATHERINE RENEE Primary Care Provider [phone] CATHERINE RENEE Referring Provider [phone] Assessment Encounter Date Assessment Date Assessment LastModified by Organization Details LastModified Time 10/08/2023 10/08/2023 ASSESSMENT AND PLAN: Marley Chowdary is a 38-year-old female who returns for follow-up for chronic migraine without aura. At this point, based on her history and lack of response to topiramate, we will move forward with nortriptyline 25 mg nightly. We will maintain rizatriptan 10 mg as needed. Unfortunately, she has a low lying blood pressure of 94/70, so she is not an ideal candidate for any blood pressure class medication such as propranolol or verapamil. She is not currently on any antidepressant class medications, so I think she would be an adequate fit for nortriptyline. We will start 25 mg nightly and have her wean off topiramate. I will see her back in 2 months for follow-up to monitor her response to nortriptyline. From there, we will discuss any additional preventative such as CGRP or Botox. I personally spent a total of 15 minutes on the patient on this date of service including both vmrb-es-mzvx and rgn-wesp-ho-face time excluding any separately reportable services. [email or web address] [email or web address] Not available 10/11/2023 06:47:38 12/11/2023 12/11/2023 ASSESSMENT AND PLAN: Marley Chowdary is a 38-year-old female who returns for follow-up for chronic migraine without aura. At this point, she has failed topiramate in addition to this failed nortriptyline due to side effects of irritability in addition to fatigue. We will attempt a trial of Emgality. We will give a loading dose sample today and submit for approval for monthly injections. If she has any problems in the interim, she understands to call the office. We will see her back in 3 months. We will maintain rizatriptan in that time. I personally spent a total of 10 minutes on the patient on this date of service including both enbt-yt-sybk and flu-yytx-yr-face time excluding any separately reportable services. saw [email or web address] Not available 12/11/2023 11:54:38 03/13/2024 03/13/2024 ASSESSMENT AND PLAN: Marley Chowdary is a 38-year-old female who returns for follow-up for chronic migraine without aura. At this point she is doing extremely well on Emgality. We will maintain the medication. Regarding additional measures, we will maintain rizatriptan as needed and she can continue to use Tylenol and ibuprofen as needed for of headache. I am going to send in a prescription for Zofran for any nausea in correlation with headaches. If she needs anything in the interim, she understands to call the office. I personally spent a total of 5 minutes on the patient on this date of service including both fgtg-vt-xvah and ssh-wmoe-if-face time excluding any separately reportable services. saw [email or web address] Not available 03/13/2024 11:49:01 Plan of Treatment Reminders Order Date Submit Date Provider Last Modified By Organization Details Last Modified Time Details Appointments Establish ed Patient 15.EST 2024 07:30A M Dr. Mari Klein Not available Not available Not available Lab None recorded. Referral None recorded. Procedures None recorded. Surgeries None recorded. Imaging None recorded. Medication Orders Zofran 4 mg tablet 2023 024 [facility] [address], [id number], 03/13/2024 08:48:51 Emgality Pen 120 mg/mL subcutane ous pen injector 2023 [facility], [address], [place], [id number], 12/13/2023 17:15:15 nortripty line 25 mg capsule 2023 024 [facility], [address] [place] [address], [id number], 03/13/2024 09:13:55 rizatript an 10 mg tablet 2023 [facility], [address] [place] [address], [id number], 10/08/2023 18:01:21 Patient TargetsNo targets recorded. Patient InstructionsNo instructions recorded. Reason for Referral None Reported. Results Created Date Observation Date Name Description Value Unit Range Abnormal Flag Note LastModifiedBy Organization Detail LastModifiedTime 11/02/19 24 05/05/2023 MRI, brain , w/o contr ast No observ ation record ed. [email or web address] [facility] [address] [place], [address], 02/21/2024 12:54:40 Result Notes None recorded. Problems Name Problem SNOMED Code Status Onset Date Resolution Date Notes Provider Name and Address Organization Details Recorded Time Migraine without aura, not refractory 377498273 Active 2023 Mari Klein MD [address] [place] [address], [phone] [place] [address] 4 08:47:15 Feeling irritable 75140384 Active 2023 [facility] 4 10:00:29 Fatigue 80544747 Active 2023 Kr[facility] 4 10:00:49 Tricyclic antidepress ant drug adverse reaction 102775347 Active 2023 Kriss Hur[facility] 4 10:01:40 Chronic migraine without aura 6507411830506 05 Active 2023 Julia Kirk [facility] 17:59:59 Problem Notes None recorded. Procedures Surgical History Date Name Laterality Status Provider Name and Address Organization Details Recorded Time delivery completed Not Available Health Note 10/01/2023 09:55:49 Removal of gallbladder completed Not Available Health Note 10/01/2023 09:55:49 Imaging Results Imaging Date Name Status LastModified by Organiz ation Details LastModified Time 05/05/2023 MRI, brain, w/o contrast completed [email or web address] [facility] [address] [place], [address], 02/21/2024 12:54:40 Procedure Notes None recorded. Medical Equipment None Reported. Allergies Allergen ID Allergen Name Allergen Category Reaction Reaction Severity Criticality Documentation Date Start Date Code Code System Note Provider Name and Address Organization Details Recorded Time 3359333 morphine medicatio n anaphylax is flushing itching nausea rash Not available Not available Not available Not available Not available Not available 10/01/2023 7052 RxNorm Not Available Not Available Not Available Medications Name Sig Start Date Stop Date Status Note LastModified by Organization Details LastModified Time venlafaxine ER 37.5 mg capsule,ext ended release 24 hr take 1 capsule (37.5 mg) by oral route once daily with food 10/07 completed Not Available Not Available Not Available meloxicam 15 mg tablet 10/07 completed Not Available Not Available Not Available rizatriptan 10 mg tablet Take 1 tab at onset of CAMPOVERDE. Repeat an additiona l dose in 1-2 hours if CAMPOVERDE persists. Max 2 tab per 24 hours. Max 3 uses per week. active Not Available Not Available No t Available topiramate 25 mg tablet Take 1 tablet twice a day by oral route as directed for 30 days. 10/09 completed Not Available Not Available Not Available nortriptyli ne 25 mg capsule Take 1 capsule nightly 03/13 completed Not Available Not Available Not Available Zofran 4 mg tablet Take 1 tab every 6 hours prn 2023 active Not Available Not Available Not Avai lable oseltamivir 75 mg capsule 10/07 completed Not Available Not Available Not Available orphenadrin e citrate ER 100 mg tablet,exte nded release 10/07 completed Not Available Not Available Not Available albuterol sulfate HFA 90 mcg/actuati on aerosol inhaler INHALE 1 PUFF EVERY 4 TO 6 HOURS NEEDED SHORTNESS OF BREATH OR FOR WHEEZING FOR 7 DAYS active Not Available Not Available No t Available fluticasone propionate 50 mcg/actuati on nasal spray,suspe nsion USE ONE SPRAY IN EACH NOSTRIL TWO TIMES A DAY active Not Available Not Available No t Available topiramate 50 mg tablet Take 1/2 tablet x 4 days then take 1/2 TABLET TWO TIMES A DAY x 4 days then take 1/2 TABLET EVERY MORNING and 1 TABLET NIGHTLY AT BEDTIME x 4 days then take 1 TABLET TWO TIMES A DAY] 10/07 completed Not Available Not Available Not Available Emgality Pen 120 mg/mL subcutaneou s pen injector INJECT 1 ML SUBCUTANE OUSLY ONCE A MONTH 2024 active Not Available Not Available Not Avai lable Flowflex COVID-19 Antigen Home Test kit use DIRECTED to test for covid active Not Available Not Available No t Available Vitals Date Recorded Body weight Heart rate Respiratory rate Oxygen saturation Oxygen saturation in Arterial blood by Pulse oximetry Systolic blood pressure Diastolic blood pressure Provider Name and Address Organization Details Last Updated DateTime 4 17760.3 2 g 93 /min 18 /min 99 % 99 % 94 mm[Hg] 70 mm[Hg] [facility] 4 09:38:55 Date Recorded Body weight Heart rate Oxygen saturation Oxygen saturation in Arterial blood by Pulse oximetry Systolic blood pressure Diastolic blood pressure Provider Name and Address Organization Details Last Updated DateTime 4 12548.2 6 g 83 /min 100 % 100 % 116 mm[Hg] 72 mm[Hg] Anat Mckeon [facility] 4 08:50:03 Date Recorded Body weight Heart rate Oxygen saturation Oxygen saturation in Arterial blood by Pulse oximetry Systolic blood pressure Diastolic blood pressure Provider Name and Address Organization Details Last Updated DateTime 4 28776.4 4 g 85 /min 100 % 100 % 145 mm[Hg] 95 mm[Hg] Anat Mckeon [facility] 08:41:01 Social History Question Answer Notes LastModified by INVOLTA Details LastModified Time Do You Have An Advance Directive? No [email or web address] Information not available 10/01/2023 What Is Your Level Of Alcohol Consumption? Occasional [email or web address] Information not available 10/01/2023 How Many Times Per Week Do You Consume Alcohol? Less Than 1 Time Per Week [email or web address] Information not available 10/01/2023 What Is Your Level Of Caffeine Consumption? Occasional [email or web address] Information not available 10/01/2023 Are You Currently Employed? 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 1-2 Times Per Week [email or web address] Information not available 10/01/2023 Do You Have A Medical Power Of Iuss Master Analyst? No [email or web address] Information not available 10/01/2023 What Was The Date Of Your Most Recent Tobacco Screening? 10/08/2023 [email or web address] Information not available 10/01/2023 What Is Your Relationship Status? [email or web address] Information not available 10/01/2023 Do You Use Any Illicit Or Recreational Drugs? No [email or web address] Information not available 10/01/2023 Sex: Unknown Functional Status Question Answer Note LastModified by INVOLTA Details LastModified Time What is your exercise level? Occasional [email or web address] Information not available 10/01/2023 Mental Status None recorded. Family History Relationship Description Onset Age of this Age Resolved Age Notes LastModified by Organization Details LastModified Time Maternal Grandmother Alzheimer's disease [email or web address] Not available 2023 09:55:48 Maternal Grandmother Diabetes mellitus [email or web address] Not available 2023 09:55:48 Mother Arthritis [email or web address] Not available 10/01/2023 09:55:48 Mother Diabetes mellitus [email or web address] Not available 2023 09:55:48 Maternal Grandfather Diabetes mellitus [email or web address] Not available 2023 09:55:48 Father Heart disease [email or web address] Not available 2023 09:55:48 Father Hypertensive disorder [email or web address] Not available 2023 09:55:48 Father Cerebrovascu lar accident [email or web address] Not available 04/2023 09:55:48 Paternal Grandmother Heart disease [email or web address] Not available 2023 09:55:48 Paternal Grandmother Hypertensive disorder [email or web address] Not available 2023 09:55:48 Paternal Grandmother Cerebrovascu lar accident [email or web address] Not available 04/2023 09:55:48 Medical History Condition Response Diabetes N Anxiety Disorder Y Bleeding Disorder N Attention-deficit Hyperactivity Disorder N High Blood Pressure N Arthritis N Hyperlipidemia N Cancer N Stroke N Thyroid Problems N Asthma Y Depression N COPD N Anemia N Seizures N Heart Disease N Fibromyalgia N Osteoporosis N Kidney Disease N Gynecological HistoryNo gynecological history recorded. Obstetrics History GPAL:G 0 P 0 0 0 0 Past Encounters Encounter ID Performer Location Encounter Start Date Encounter Closed Date Diagnosis/Indication Diagnosis SNOMED-CT Code Diagnosis ICD10 Code Diagnosis Note [id number] [facility] [address] [place] [phone] 10/08/2023 09:23:06 10/08/2023 10:08:47 Chronic migraine without aura 3997226085 43751 G43.709 Long-term drug therapy 905631322 Z79.391 [id number] Mari Klein MD [address] Neu[facility] ([place]) [address] [place] [phone] 12/11/2023 08:41:56 12/11/2023 09:19:40 Migraine without aura, not refractory 646885834 G43.709 Additional diagnosis detail: Chronic migraine without aura without status migrainosu s, not intractabl e Feeling irritable 445225 07 R45.4 Additional diagnosis detail: Irritabili ty Fatigue 51568632 R53.83 Additional diagnosis detail: Other fatigue Tricyclic antidepressant drug adverse reaction 935786640 T43.015A Additional diagnosis detail: Adverse effect of tricyclic antidepres sants, initial encounter [id number] Mari Klein [facility] [address] [place] [address] [place] [address] 03/13/2024 08:34:56 03/13/2024 08:48:56 Migraine without aura, not refractory 821501343 G43.709 Additional diagnosis detail: Chronic migraine without aura without status migrainosu s, not intractabl e Health Concerns Section Related Observation LastModified by Organization Detai ls LastModified Time None Recorded Concern Status LastModified by Organization Details LastModified Time None Recorded Advance Directives Directive N: Payers Encounter Date Sequence Insurance Name Policy Number Policy [place] Covered Member ID [place] Member ID Guarantor Name 10/08/2023 1 [facility] (MEDICAID HMO) [id number] Marley Chowdary [id number] Marley Chowdary 12/11/2023 1 [facility] (MEDICAID HMO) [id number] Marley Doshipp [id number] Marley Chowdary 03/13/2024 1 [facility] (MEDICAID HMO) [id number] Marley Chowdary [id number] Marley Chowdary Notes Date Note Type Note Provider Name and Address Organization Details Recorded Time 10/08/2023 text/html Marley Chowdary is a 38-year-old female who returns for follow-up for chronic migraine without aura. In the interim since I last saw her, she has not had much success with topiramate. She is still having fairly frequent headaches around the same frequency as when I previously saw her in July. This ranges around 30 out of 30 days with headache. She really has no remittance from headache. She has nausea and photophobia. No osmophobia, phonophobia or vomiting. Historically she has attempted Tylenol, ibuprofen and loratadine without much success. While she had no adverse effects related to topiramate, it was not successful for her. Mari Klein MD [address] , [place], [phone], [facility] 10/12/2023 13:45:34 12/11/2023 text/html Marely Chowdary is a 38-year-old female who returns for follow-up for chronic migraine without aura. In the interim since I last saw her, she had failed topiramate. We made a switch to nortriptyline 25 mg nightly. She began taking this sometime around mid-September. This has been making her excessively drowsy in the morning. She has had to increase her coffee intake to wake up and get moving. Historically on her days off, she has been getting up around 12 or 1. She also notes with this she becomes extremely irritable and is snapping inappropriately on her boyfriend and having anger outbursts. She has had a reduction in her headaches with the medication itself. She has gone from 30 out of 30 days to 15 out of 30 days with headache with only 2 severe per month. Although, it does seem the adverse effects are limiting her from good quality of life on the medication. Historically, her blood pressure has run low. At last visit in September it was 94/70. Today it is 116/72. We discussed I do not think she is a great candidate for any anti-hypertensive agents for management of migraine related to the low lying pressure. Mari Klein MD [address] [place] [address], [phone], [facility] 12/13/2023 17:15:20 03/13/2024 text/html Marley Chowdary is a 38-year-old female who returns for follow-up for chronic migraine without aura. We switched her to Emgality, and she has done extremely well. She has some recurrence of headaches at the end of the month with 2 or 3 days of headache and is fairly limited prior to the next round of injection. She reports mild adverse effects. She will get some cramping distally in the leg and reports a metallic taste in her mouth. Both reverse within 24 hours. These are mild and are not causing her any significant distress. She has rizatriptan at home to use as needed. She will frequently forget the medication and does not use it often. She gets success with Tylenol and ibuprofen at onset of headache. 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 We have not yet given her a prescription for Zofran. Mari Klein MD [address] [place] [address], [phone], [facility] 03/18/2024 10:03:24 OBGyn Episode No OBEpisode recorded.
[2024-07-01 15:43] LABS: Free T3 2.45 pg/mL (2.18-3.98)
[2024-07-03 02:58] LABS: FSH 5.8 mIU/mL
[2024-07-06 10:03] LABS: Estrogen 213 pg/mL
== END 2024-07-01 13:53 | disposition home or self-care (01) ==
LOC: CHSLAB 13:54
PROVIDERS: PCP Internal Medicine; Visit Provider Internal Medicine
DX: R63.5 Abnormal weight gain (principal); N95.1 Menopausal and female climacteric states; R23.2 Flushing
CPT/HCPCS: 36415; 82672; 83001; 83002; 84439; 84443; 84481

== ENCOUNTER 2024-11-10 18:36 | Emergency (ER) | payer OTHER, SELFPAY ==
--- NOTE | ~2024-11-10 | XR_ITS ---
CHEST RADIOGRAPH CLINICAL HISTORY: UPPER CP . COMPARISON: 06/28/2020 TECHNIQUE: Single portable view of the chest. FINDINGS The cardiomediastinal silhouette is unremarkable. The lungs are clear. IMPRESSION: No focal infiltrate or effusion. Reviewed, dictated and finalized at location A.
[2024-11-10 18:37] VITALS: BP 135/92; PULSE 90; RESP 20; TEMP 36.6; O2SAT 100
--- OUTSIDE RECORDS SUMMARY | 2024-11-10 18:38 | XMS_ITS | Clinical Summary ---
Author Organization [facility] Address [facility] [place] [address] Care Team Providers Care Crusher Operator Name Role Phone Adria Clark MD Primary Care Provider Allergies Active Allergy Reactions Criticality Noted Date [...] 10:23 PM CDT Height 170.2 cm (5' 7) 01/19/2024 10:2 3 PM CDT Body Mass Index 27.69 01/19/2024 10:23 PM CDT Plan of Treatment Health Maintenance Due Date Last Done Comments Cervical Cancer Screening Pap Smear (Age 30 to 64) Every 3 Years 1987 Annual Physical 1990 Hepatitis C 2005 Hepatitis B Vaccines (1 of 3 - 19+ 3-dose series) 2006 HPV Vaccines (1 - 3-dose SCDM series) 2014 Cervical Cancer Screening Pap with HPV Testing (Age 30 to 64) Every 5 Years 2017 Cervical Cancer Screening with HPV 2017 DTaP, Tdap and Td Vaccines (2 - Td or Tdap) 12/25/2021 12/26/2011 COVID-19 Vaccine ( season) 2023 04/19/2021, 06/28/2020, 05/28/2020, Additional history exists Meningococcal B Vaccine Aged Out No l onger eligible based on patient's age to complete this topic Meningococcal Vaccine Aged Out No lanie mak eligible based on patient's age to complete this topic Pneumococcal Vaccine: Pediatrics (0 to 5 Years) and At-Risk Patients (6 to 49 Years) Aged Out No longer eligible based on patient's age to complete this topic RSV Immunizations Under 20 Months Aged Out No longer eligible based on patient's age to complete this topic Insurance MARINO Care Teams Crusher Operator Relationship Specialty Start Date End Date Adria Clark MD [address] [place] [id number] PCP - General INTERNAL MEDICINE 09/13/18
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
--- NOTE | 2024-11-10 18:47 | ECG_ITS ---
Test Date: 2024-11-10 19:00:03 Measurements Intervals [place] Rate: 73 P: 51 DC: 169 QRS: 59 QRSD: 113 T: 40 QT: 388 QTc: 430 Interpretive Statements SINUS RHYTHM WITH SINUS ARRHYTHMIA INCOMPLETE RIGHT BUNDLE BRANCH BLOCK NONSPECIFIC T-WAVE ABNORMALITY- ANTERIOR LEADS BASELINE ARTIFACT- I, II, III, AVR, AVL, V1-V2 BORDERLINE ECG No previous ECG available for comparison Electronically Signed On 11-11-2024 06:15:00 CDT by Joey Phillips D.O.
[2024-11-10 18:48] VITALS: PULSE 89; O2SAT 100
--- NOTE | 2024-11-10 18:54 | PC.NURSE ---
Laboratory and x-ray at pt bedside.
[2024-11-10 19:01] LABS: Hematocrit 39.5 % (35.0-49.0); Hemoglobin 13.0 g/dL (12.0-15.0); Immature Granulocyte Percent A 0.2 % (0.0-0.0); Lymphocytes Absolute Auto 1.85 K/mm3 (1.10-4.50); Mean Corpuscular HGB Conc 32.9 g/dL (32-36); Mean Corpuscular Hemoglobin 28.2 pg (27.0-31.0); Mean Corpuscular Volume 85.7 fL (78.0-102.0); Nucleated Red Blood Cells Absolute Auto 0.00 K/mm3 (0.00-0.00); Nucleated Red Blood Cells Perc 0.0 % (0-0.0); Platelet Count Result 230 K/mm3 (150-420); Red Blood Count 4.61 M/mm3 (4.20-5.40); White Blood Count 5.7 K/mm3 (4.8-10.8)
[2024-11-10] MEDS: METOCLOPRAMIDE HCL INJ 10 MG/2 ML VIAL IV PUSH (19:10)
[2024-11-10] MEDS: LORazepam INJ (*CRX) 2 MG/ML VIAL 1 MG IV PUSH (19:11)
[2024-11-10] MEDS: KETOROLAC 30 MG/ML VIAL (*BKC) IV PUSH (19:11)
[2024-11-10 19:13] LABS: Alanine Aminotransferase 15 U/L (6-35); Albumin Level 4.3 g/dL (3.5-5.1); Alkaline Phosphatase 45 U/L (38-126); Anion Gap 7 mmol/L (4-12); Aspartate Amino Transferase 21 U/L (14-36); Bilirubin,Total 0.5 mg/dL (0.2-1.3); Blood Urea Nitrogen 9 mg/dL (7-17); Calcium 9.4 mg/dL (8.4-10.2); Carbon Dioxide 26 mmol/L (22-30); Chloride 107 mmol/L (98-107); Estimated CRCL calculation 92 ml/min; Estimated Glomerular Filt Rate > 60; Glucose 105 mg/dL (65-110); Osmolality Calculated 288 mOsm/kg (285-295); Potassium 3.7 mmol/L (3.4-5.0); Sodium 140 mmol/L (137-145); Total Protein 6.8 g/dL (6.3-8.2)
--- OUTSIDE RECORDS SUMMARY | 2024-11-10 19:14 | XMS_ITS | Clinical Summary ---
Author Organization [facility] Address [facility] [place] [address] Care Team Providers Care Photo Checker And Assembler Name Role Phone Adria Clark MD Primary Care Provider [phone] Allergies Active Allergy Reactions Criticality Noted Date [...] complete this topic Insurance MARINO Care Teams Photo Checker And Assembler Relationship Specialty Start Date End Date Adria Clark MD [address] [place] [id number] PCP - General INTERNAL MEDICINE 09/13/18
[2024-11-10 19:16] LABS: INR 0.9; Partial Thromboplastin Time 25.2 Sec (23.9-30.70); Prothrombin Time 10.5 Seconds (9.50-12.1)
[2024-11-10 19:25] LABS: Troponin I < 0.012 ng/mL (0.000-0.034)
--- NOTE | 2024-11-10 19:25 | PC.NURSE ---
Handoff report given to BERNADINE Roach.
--- NOTE | 2024-11-10 20:00 | PC.NURSE ---
Pt resting w/ eyes closed, she states she is feeling better at this time, VSS.
[2024-11-10 20:23] VITALS: BP 120/66; PULSE 70; RESP 18; TEMP 36.6; O2SAT 99
== END 2024-11-10 20:23 | disposition home or self-care (01) ==
PROVIDERS: Emergency Provider Emergency Medicine; PCP Internal Medicine
DX: G43.909 Migraine, unspecified, not intractable, without status migrainosus (principal); R06.4 Hyperventilation; R00.2 Palpitations; Z79.899 Other long term (current) drug therapy
CPT/HCPCS: 36415; 71045; 80053; 84484; 85025; 85380; 85610; 85730; 93005; 96374; 96375; 99284; J1200; J1885; J2060; J2765